=== PATIENT | female | born 2000 | race Two or more races ===

== ENCOUNTER 2025-01-12 19:17 | Emergency (ER) | payer MEDICAID, SELFPAY ==
[2025-01-12 19:18] VITALS: BMI 35.6
[2025-01-12 20:07] VITALS: BP 109/74; PULSE 88; RESP 18; TEMP 36.6; O2SAT 100
--- NOTE | 2025-01-12 20:10 | PD.EDSKIN ---
ED Skin Abcess FB-RME/HPI General Chief complaint: Skin/Abscess/Foreign Body Stated complaint: MOSQUITO BITES Time Seen by Provider: 01/12/25 20:07 Arrival date/time: 01/12/25 19:17 RME / HPI RME / HPI narrative: 24-year-old female patient came in for evaluation regarding multiple lesions noted on the bilateral lower extremity, according to her she been ongoing for 1 week, associated with itchiness, severity moderate. Patient denies any other complaints. Patient told me that everything is probably secondary to mosquito bites. Denies any similar episode in the past. Related Data Home Medications ?Medication ?Instructions ?Recorded ?Confirmed vits [id number] fum 1 tab PO QDAY 01/05/20 01/05/20 27 mg iron-folic acid 800 mcg tablet ( Vitamin) Previous Rx's ?Medication ?Instructions ?Recorded ibuprofen 600 mg tablet 600 mg PO Q6H #30 tabs 01/08/20 diphenhydramine HCl 25 mg capsule 25 mg PO TID PRN allergic reaction 01/12/25 (Benadryl) #30 caps prednisone 50 mg tablet 50 mg PO QDAY #5 tabs 01/12/25 Allergies Allergy/AdvReac Type Severity Reaction Status Date / Time No Known Allergies Allergy Verified 01/12/25 19:18 Review of Systems Review of Systems Narrative Review of Systems: Review of system reviewed and within normal limits except mentioned in HPI ED Exam Narrative Physical exam: VITAL SIGNS: Reviewed. GENERAL APPEARANCE: Alert and interactive, follows commands, no acute distress, HEAD AND FACE: Non-traumatic. ENT: PERRL, pink conjunctivitis, eyelid no trauma, Mucous membrane moist. NECK: Supple, nontender, no nuchal rigidity. CHEST: No tenderness, no crepitus, no paradoxical movement, no retractions. LUNGS: Clear, well ventilated, symmetric, no rales, no wheezing, no ronchi, no stridor, good breath sounds bilaterally. HEART: Regular rate, regular rhythm, no murmur, no gallops. ABDOMEN: Soft, positive bowel sounds, nondistended, no guarding, nontender, no rebound, no masses, RECTAL: Deferred. GENITAL: Deferred. NEUROLOGICAL: Gross motor function intact sensory function intact, Appropriate for age. MUSCULOSKELETAL: low back nontender, full range of motion. EXTREMITIES: Nontender, full range of motion. SKIN: Color pink, dry, multiple rashes noted on the bilateral lower extremity, no lacerations, no abrasions, no contusions. LYMPHATICS: Deferred. Course Quality Measures none Orders Category Date Time Status DiphenhydrAMINE [Benadryl] Med 01/12/25 20:10 Once 50 mg PO X1 ONE Famotidine [Pepcid] Med 01/12/25 20:10 Once 40 mg PO X1 ONE predniSONE Med 01/12/25 20:10 Once 60 mg PO X1 ONE Vital Signs Vital signs: Vital Signs Temperature 98 F 01/12/25 20:07 Pulse Rate 88 01/12/25 20:07 Respiratory Rate 18 01/12/25 20:07 Blood Pressure 109/74 01/12/25 20:07 Pulse Oximetry (%) 100 01/12/25 20:07 Oxygen Delivery Method Room Air 01/12/25 20:07 Skin / Abscess / Foreign Body MDM Narrative MDM Narrative:: 24-year-old female patient came in for evaluation regarding multiple lesions noted on the bilateral lower extremity, according to her she been ongoing for 1 week, associated with itchiness, severity moderate. Patient denies any other complaints. Patient told me that everything is probably secondary to mosquito bites. Denies any similar episode in the past. Patient received prednisone, Benadryl and Pepcid with significant problems symptoms Patient appears nontoxic and hemodynamically stable. Patient discharged home and instructed to follow-up with primary care provider in 24 to 48 hours. Instructed to return to the emergency department immediately if worsening of symptoms Patient data External records reviewed:: None Clinical information provided by:: patient Social determinants that could affect healthcare access:: none Patient has the following chronic illnesses:: None How is presenting disease/condition affected by chronic disease/condition?: no chronic disease Evaluation data The following diagnostics were reviewed and interpreted by me:: other (specify) (None) Lab and/or radiology exams considered but not ordered:: None Interpretation Summary: None Medications / Prescriptions Medications or Prescriptions considered but not ordered:: None Medication administrations:: Medication Administration History Discontinued Medications Diphenhydramine HCl (Diphenhydramine 25 Mg Capsule) 50 mg PO X1 ONE Stop: 01/12/25 20:11 Famotidine (Famotidine 20 Mg Tablet) 40 mg PO X1 ONE Stop: 01/12/25 20:11 Prednisone (Prednisone 20 Mg Tablet) 60 mg PO X1 ONE Stop: 01/12/25 20:11 None Consultations Consultation(s) initiated? (list below): No Diagnosis Skin/Abscess Differential Diagnosis: viral exanthem, cellulitis, insect bites and impetigo Most likely diagnosis given after review of the tests above:: Infected insect bite Admission Indicated Admission indicated?: not indicated Admission Request Was there a request for admission?: No Disposition Plan Disposition Plan: Discharge Discharge Attestation Discharge Attestation: The patient and all family members were given an opportunity to ask questions and understood the discharge instructions. Discharge instructions specifically effects, indications for sooner follow up or return to the emergency department, and the expected course of current diagnosis. Patient condition: Stable Discharge Plan Plan Patient Disposition: HOME (Self Care) Discharge Disposition comment: Stable Prescriptions/Referrals Prescriptions/Med Rec: New prednisone 50 mg tablet 50 mg PO QDAY Qty: 5 0RF diphenhydramine HCl [Benadryl] 25 mg capsule 25 mg PO TID PRN (Reason: allergic reaction) Qty: 30 0RF No Action Vitamin 27 mg iron- 800 mcg Tablet 1 tab PO QDAY ibuprofen 600 mg tablet 600 mg PO Q6H Qty: 30 0RF Problem List Clinical Impression: Insect bites Patient/Caregiver Discharge Instructions Discharge Activity: activity as tolerated Education Materials: ED Insect Bite Additional Instructions: Thank you for the opportunity for serving you today. You are stable for discharged . You are advised to: Follow-up with your PCP in 1 to 2 days Return to ED for worsening of symptoms Increase oral fluids Take medication as prescribed Print Language: Ukrainian Stand Alone Forms: Dominique Award Info., Patient Portal Info Letter OC/LUCERO Supervising Physician JESUS Supervising Physician: MD Maria A
[2025-01-12] MEDS: predniSONE 20 MG TABLET 60 MG PO (20:46)
[2025-01-12] MEDS: FAMOTIDINE 20 MG TABLET 40 MG PO (20:47)
[2025-01-12] MEDS: DiphenhydrAMINE 25 MG CAPSULE 50 MG PO (20:47)
== END 2025-01-12 20:45 | disposition home or self-care (01) ==
LOC: SERX 20:52
PROVIDERS: Emergency Provider Emergency Medicine; PCP Physician Assistant
DX: S80.862A Insect bite (nonvenomous), left lower leg, initial encounter (principal); S80.861A Insect bite (nonvenomous), right lower leg, initial encounter; W57.XXXA Bitten or stung by nonvenomous insect and other nonvenomous arthropods, initial encounter
CPT/HCPCS: 99282; J7512; A9270